=== PATIENT | male | born 1975 | race African-American/Black ===

== ENCOUNTER 2024-02-14 11:15 | Emergency (ER) | payer SELFPAY ==
[2024-02-14 11:25] VITALS: BP 130/88; PULSE 70; RESP 18; TEMP 98.2; BMI 34.4
[2024-02-14 13:42] LABS: BASO % 0.6 % (0-2.0); EOS % 3.1 % (0-4.5); HEMATOCRIT 46.6 % (35.4-49); HEMOGLOBIN 15.6 GM/dL (11.7-16.9); LYMPH % 36.2 % (8-40); MCH 30.2 pg (25.7-33.7); MCHC 33.4 g/dl (32.0-35.9); MEAN CELL VOLUME 90.4 fl (80-96); MEAN PLT VOLUME 9.7 fl (7.5-11.1); MONO % 9.1 % (3.8-10.2); PLATELET COUNT 263 10^3/uL (134-434); RBC 5.16 M/mm3 (4.00-5.60); RDW 14.2 % (11.9-15.9); WHITE BLOOD COUNT 7.8 K/mm3 (4.0-10.0)
[2024-02-14 14:01] LABS: POTASSIUM 4.3 mmol/L (3.5-5.1)
[2024-02-14 14:03] LABS: CALCIUM 8.8 mg/dL (8.5-10.1)
[2024-02-14 14:04] LABS: ALBUMIN 3.7 g/dl (3.4-5.0); BLOOD UREA NITROGEN 13.1 mg/dL (7-18)
[2024-02-14 14:05] LABS: INR 1.1 (0.83-1.09); PROTHROMBIN TIME (PATIENT) 12.4 SEC (9.7-13.0)
[2024-02-14 14:09] LABS: BILIRUBIN,TOTAL 0.6 mg/dL (0.2-1); TOT PROT 7.5 g/dl (6.4-8.2)
== END 2024-02-14 16:08 | disposition home or self-care (01) ==
LOC: JER 11:15
DX: M79.89 Other specified soft tissue disorders (principal); M25.471 Effusion, right ankle; I82.409 Acute embolism and thrombosis of unspecified deep veins of unspecified lower extremity
CPT/HCPCS: 36415; 80053; 85025; 85610; 93971-TC; 99284-25